=== PATIENT | male | born 1950 | race Caucasian/White ===

== ENCOUNTER 2016-08-18 11:41 | Emergency (ER) | payer MEDICARE, OTHER | END 2016-08-18 15:05 | disposition home or self-care (01) | LOC: ER 11:41 | DX: J18.1 Lobar pneumonia, unspecified organism (principal); F43.10 Post-traumatic stress disorder, unspecified; I11.0 Hypertensive heart disease with heart failure; I50.9 Heart failure, unspecified; Z79.4 Long term (current) use of insulin; Z79.82 Long term (current) use of aspirin; Z79.899 Other long term (current) drug therapy | CPT/HCPCS: 36415; 96365; J0696 ==